=== PATIENT | female | born 1955 | race Caucasian/White ===

== ENCOUNTER 2018-01-16 18:35 | Emergency (ER) | payer OTHER ==
[~2018-01-16] VITALS: Ht 154.9 cm; Wt 50.8 kg
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
[2018-01-16 21:46] LABS: ABSOLUTE BASOPHIL COUNT 0 /CUMM (0.0-0.2); ABSOLUTE EOSINOPHIL COUNT 0.1 /CUMM (0.0-0.7); ABSOLUTE GRANULOCYTE CT 3.2 /CUMM (1.4-6.5); ABSOLUTE LYMPH COUNT 2.4 /CUMM (1.2-3.4); ABSOLUTE MONOCYTE COUNT 0.5 /CUMM (0.10-0.60); BASOPHIL % 0.8 % (0.0-2.0); EOSINOPHIL % 1.3 % (0-5); GRANULOCYTE % 51.4 % (42.2-75.2); HEMATOCRIT 38.5 % (37-47); MEAN CORPUSCULAR HGB 33.3 PG (27.0-31.0); MEAN CORPUSCULAR HGB CONC 33.2 G/DL (33.0-37.0); MEAN CORPUSCULAR VOLUME 100.3 FL (81.0-99.0); MEAN PLATELET VOLUME 7.4 FL (7.4-10.4); PLATELET COUNT 380 /CUMM (130-400); RED BLOOD CELL CT 3.84 /CUMM (4.20-5.40); WHITE BLOOD CELL COUNT 6.2 /CUMM (4.8-10.8)
[2018-01-17] MEDS ORDERED: METOPROLOL SUC200 M2 PO (08:34)
[2018-01-17] MEDS ORDERED: LORAZEPAM0.5 M1 PO (08:35)
[2018-01-17] MEDS ORDERED: CRESTOR20 M2 PO (08:35)
[2018-01-17] MEDS ORDERED: AMLODIPINE BESYL5 M1 PO (08:37)
[2018-01-17] MEDS ORDERED: ESCITALOPRAM OX20 MG PO (08:37)
[2018-01-17] MEDS ORDERED: LOSARTAN POTAS100 M1 PO (08:37)
[2018-01-17 09:34] VITALS: BP 120/72
== END 2018-01-17 10:23 ==
LOC: ERH 18:35
PROVIDERS: Physician Assistant
DX: F10.20 Alcohol dependence, uncomplicated (principal); I10 Essential (primary) hypertension; F17.210 Nicotine dependence, cigarettes, uncomplicated
CPT/HCPCS: 80307; 81001; G0480; J3101